=== PATIENT | female | born 1940 | race Caucasian/White ===

== ENCOUNTER 2024-01-05 15:28 | Inpatient (IN) | payer MEDICARE, OTHER, SELFPAY ==
[2024-01-05] VITALS (11 sets, daily range): BP systolic 127–163; BP diastolic 71–93; BMI 21.1; BMI 19.9
--- NOTE | 2024-01-05 11:13 | ED.GENMED ---
History of Present Illness
General
Chief Complaint: Chest Pain
Source: patient
Exam Limitations: none
Time Seen by Provider: 01/05/24 10:59
Travel History
Have you had any contact with someone who has COVID-19?: No
Do you have any symptoms of coronavirus? Fever > 100 degrees, chills, cough, shortness of breath, sore throat, loss of taste or smell, muscle aches, or headache?: No
History of Present Illness
History of Present Illness:
83-year-old female presents in referral from [facility] for evaluation of right pleuritic chest wall pain. She notes it began getting worse over the past 4 to 5 days. She notes she is slightly short of breath. She has a history of
mild dementia. 2 months ago, she flew to [place] and had a trip there of which she broke several hiking. She felt that she was completely healed from this and had no pain up until 4 to 5 days ago. She denies any leg swelling or calf pain. No
vomiting. No prior history of underlying lung disease or cardiac disease.
Past History
Past History
ED Past Medical History: Cancer and Other (Diverticulitis, small bowel obstruction, peptic ulcer disease, Alzheimer's, mitral valve prolapse)
ED Past Surgical History: Cardiac, , Gynecological and Tonsilectomy
Social History
Tobacco: Former smoker
Alcohol: None
Drug: None
Personal:
Employment: Retired
Family History
Family History: Other (Noncontributory)
Phy Exam
Physical Exam
Physical Exam:
General: Well-appearing female slight increased work of breathing
HEENT: Normocephalic atraumatic
Heart: Regular rate and rhythm
Lungs: Clear increased respiratory effort
Abdomen: Soft nontender nondistended no guarding or rebound
Extremities: No cyanosis or edema
Scores
Heart Score for Chest Pain Patients
STEMI patient?: No
History: Slightly or Non-Suspicious
ECG: Normal
Age: >/= 65 years
Risk Factors: No Risk Factors
Troponin: </= Normal Limit
Heart Score for Chest Pain Patients: 2
Heart Score Risk: 2.5% MACE over next 6 weeks
Course
Orders/Labs/Results
Orders:
Orders
01/05/24 09:46
ECG [Electrocardiogram (*1)] Urgent
Reason for Study: Chest Pain
EKG- Treatment ONCE
01/05/24 11:11
Electrocardiogram (*1) Urgent
Reason for Study: Chest Pain
EKG- Treatment ONCE
01/05/24 11:53
Complete Blood Count/With Diff Urgent
Comprehensive Metabolic Panel Urgent
NT-proBNP Urgent
Troponin I Urgent
01/05/24 12:55
CT Chest Pe Study Urgent
Comment:
Reason For Exam: right chest wall pain
01/05/24 14:33
PTT Urgent
Comment: Obtain baseline before beginning heparin infusion if not already collected
Heparin 4,200 units IV NOW STA
Pharmacy Request to Place See Dose Instructions PO NOW STA
Discontinue all Active Warfarin orders?: Yes
Nursing to Place Non Medication Order As Directed
Physician Order: PTT 6 hours after initial start of Heparin infusion
01/05/24 14:45
Heparin [id number] Units/250 ml 25,000 units in 250 ml IV PER PROTOCOL
Weight to be used for heparin protocol in kilograms (kg):: 52.2
Protocol:: DVT/PE
PTT Goal Range to be used:: PTT 73 to 111 seconds
Order type:: Initial
INITIAL Infusion Dose (UNITS/KG/hr) & then follow protocol:: 18 units/kg/hr
Infusion Dose in UNITS/hr & then follow protocol (UNITS/hr):: 900
INFUSION RATE in mL/hr & then follow protocol (mL/hr):: 9
For DVT/PE algorithm, re-bolus for low PTT?: Yes
PTT less than or equal to 64 seconds:: Re-bolus 80 units/kg (max 10,000units). Increase by 200 units/hr
(+ 2mL/hr)
PTT 64.1 to 72.9 seconds:: Re-bolus 40 units/kg (max 5,000 units). Increase by 100 units/hr
(+ 1mL/hr)
PTT 73 to 111 seconds:: Target Range. No change in rate.
PTT 111.1 to 130.9 seconds:: Decrease rate by 100 units/hr (- 1 mL/hr)
PTT 131 to 199.9 seconds:: HOLD for 1 hr. Then decrease by 200 units/hr (- 2mL/hr)
PTT greater than or equal to 200 seconds:: HOLD for 2 hrs & Notify Provider. Then decrease by 200 units/hr
(- 2mL/hr)
Lab follow-up:: Each change, PTT q6h until 2 consecutive are therapeutic. Then
PTT daily.
01/05/24 15:[address] See Dose Instructions IV DIRECTED
Abnormal Lab Results
01/05/24
11:53
RBC 3.72 L 10^6/uL
(4.20-5.40)
Hgb 11.6 L g/dL
(12.0-16.0)
Hct 33.4 L %
(37.0-47.0)
MCH 31.2 H pg
(27.0-31.0)
Abs Immat Gran (auto) 0.1 H 10^3/uL
(0-0.05)
Absolute Neuts (auto) 8.9 H 10^3/uL
(1.4-6.5)
Absolute Lymphs (auto) 0.7 L 10^3/uL
(1.2-3.4)
Absolute Monos (auto) 0.8 H 10^3/uL
(0.1-0.6)
Immature Gran % 0.6 H %
(0-0.5)
Neutrophils % 85.4 H %
(42.2-75.2)
Lymphocytes % 6.3 L %
(20.5-51.1)
BUN 28 H mg/dl
(7-17)
Glucose 102 H mg/dl
(70-99)
01/05/24 11:53
01/05/24 11:53
Vital Signs
Initial and Last Documented VS:
Initial Vital Signs
Temp Pulse Resp BP Pulse Ox
99 F 81 18 134/79 96
01/05/24 09:45 01/05/24 09:45 01/05/24 09:45 01/05/24 09:45 01/05/24 09:45
Last Documented Vital Signs
Temp Pulse Resp BP Pulse Ox
99 F 71 26 143/77 94
01/05/24 09:45 01/05/24 14:30 01/05/24 14:30 01/05/24 14:00 01/05/24 14:15
MDM/Problems Addressed
Differential Diagnosis Includes:
Patient with pleuritic right-sided chest wall pain differential could include flare of rib fracture pain versus PE versus pneumonia.
Will check labs EKG and troponin. If kidney functions allow, will order PE study of chest
*Critical Care Note
Total Time (30-74mins, 75-104mins- exclusive of procedures): Not Applicable
Update Note
Update Note:
CT demonstrates bilateral pulmonary embolism without evidence of heart strain. Patient is reexamined and is still somewhat dyspneic and tachypneic but not hypoxic. Given her age, and bilateral involvement, will keep in hospital with heparin.
ED Attending Note
-
Portions of this chart may have been created with voice recognition software.� Occasional wrong word or��sound alike� substitutions may have occurred due to the inherent limitations of voice recognition software.
Discharge Plan
Departure
Patient Disposition: Admit
Date of Disposition: 01/05/24
Time of Disposition: 14:37
Admit to: Telemetry
Presentation/result/management discussed w/ accepting MD/DO: Hospitalist
Discharge Problem:
pulmonary emoblism
Prescriptions:
No Action
alendronate 70 mg tablet
70 mg PO TH
Rx Instructions:
1 tablet 30 minutes before the first food, beverage, or medicine of the day with plain water
citalopram 40 mg tablet
40 mg PO DAILY
donepezil 10 mg tablet
10 mg PO HS
gabapentin 100 mg capsule
100 mg PO TID
vitamin D3-vitamin K2 1,250-200 mcg Capsule
1 cap PO DAILY Qty: 0
omeprazole 20 mg capsule,delayed release(DR/EC)
20 mg PO DAILY
rosuvastatin 5 mg tablet
5 mg PO DAILY
acetaminophen 325 mg Tablet
650 mg PO Q4HWA Qty: 0 0RF
tramadol 50 mg Tablet
50 mg PO Q6HPRN PRN (Reason: moderate pain) Qty: 7 0RF
lidocaine 4 % Adhesive Patch,Medicated
1 patch topical DAILY Qty: 5 0RF
Referrals:
UNKNOWN - PT DOES,NOT KNOW [Family Provider] -
Interventions
Interventions:
*General Assessment Last Done: 01/05/24 11:57
*Neglect/Abuse Screening Last Done: 01/05/24 11:57
*ED COVID-19 Vaccine History Last Done: 01/05/24 09:52
ED- Cardiac Assessment Last Done: 01/05/24 12:00
[2024-01-05 12:09] LABS: % Basophils 0.4 % (0-2); % Eosinophils 0.1 % (0-6); % Immature Granulocytes 0.6 % (0-0.5); % Lymphocytes 6.3 % (20.5-51.1); % Monocytes 7.2 % (1.7-9.3); % Neutrophils 85.4 % (42.2-75.2); Absolute Immature Granulocytes 0.1 10^3/uL (0-0.05); Absolute Lymphocytes 0.7 10^3/uL (1.2-3.4); Absolute Monocytes 0.8 10^3/uL (0.1-0.6); Absolute Neutrophils 8.9 10^3/uL (1.4-6.5); Hematocrit 33.4 % (37.0-47.0); Hemoglobin 11.6 g/dL (12.0-16.0); Mean Corp Hgb Conc. 34.7 g/dL (33.0-37.0); Mean Corpuscular Hgb 31.2 pg (27.0-31.0); Mean Corpuscular Volume 89.8 fL (81.0-99.0); Nucleated Red Blood Cells % 0 %; Platelet Count 259 10^3/uL (130-400); Red Blood Cell Count 3.72 10^6/uL (4.20-5.40); Red Cell Dist. Width 12.1 % (11.5-14.5); White Blood Cell Count 10.4 10^3/uL (4.8-10.8)
[2024-01-05 12:22] LABS: ALT (SGPT) 14 U/L (0-35); AST (SGOT) 20 U/L (14-36); Albumin 4.2 g/dl (3.5-5.0); Alkaline Phosphatase 89 U/L (38-126); Blood Urea Nitrogen 28 mg/dl (7-17); Carbon Dioxide 24 mmol/L (22-30); Chloride 104 mmol/L (98-107); Estimated Creatinine Clearance 44 ml/min; Glucose 102 mg/dl (70-99); Potassium 3.9 mmol/L (3.5-5.1); Sodium 137 mmol/L (135-145); Total Bilirubin 0.7 mg/dl (0.2-1.3); Total Protein 6.7 g/dl (6.3-8.2); eGFR > 60.00
[2024-01-05 12:33] LABS: NT-proBNP 665 pg/ml; Troponin I < 0.012 ng/ml
--- NOTE | 2024-01-05 14:40 | HPS.HSE ---
Addendum entered and electronically signed by Garrison Wick MD 01/05/24 16:44:
Patient seen and examined
Discussed with PANCHITO.
Agree with assessment and plan
Impression:
83 years old female with Alzheimer's dementia, lives independently, recent mechanical fall and nondisplaced right ninth rib fracture now presents with pleuritic chest pain
Patient is hemodynamically stable with stable respiratory status with no requirements for supplemental oxygen.
While worked up in the emergency room was found to have bilateral pulmonary embolism on CTA
Bilateral PE.
Pleuritic chest pain
Conditions prior to admission:
Hospitalization with displaced right ninth rib fracture after mechanical fall on 07/16.
Chronic kidney disease stage IIb.
Alzheimer's dementia.
Anxiety.
GERD.
History of PUD
Dyslipidemia
Plan:
Acute pulmonary embolism
Presents with pleuritic chest pain
Stable respiratory status with no evidence of distress, increased work of breathing abdomen splinting. Does not require supplemental oxygen
CT chest with bilateral PE with no evidence of saddle emboli or right ventricular strain.
Check lower extremity Doppler.
Echocardiogram for
Initiated on systemic anticoagulation with IV heparin.
Will monitor closely overnight with plan to transition to oral anticoagulation within next 24 hours
Follow hemoglobin
Original Note:
Family Physician
-
Family Physician: NOT KNOW UNKNOWN - PT DOES
Chief Complaint
-
sob
right pleuritic chest pain
History of Present Illness
83-year-old female with past medical history for dementia, Alzheimer's, diverticulitis, small bowel obstruction, peptic ulcer disease, mitral valve prolapse presented to us with right-sided pleuritic chest pain associated short of breath for past
few days . Patient stated short of breath worse with activity . Few months ago, she had rib fractures from fall.� She denies any leg swelling or calf pain. Stated some dizziness. Denied headache or dizziness syncopal episode. Patient denied
abdominal pain, nausea, vomiting, diarrhea. Patient denied dysuria hematuria. Patient is from [place]. she walks and does exercise every day, which she increased since the new year.
CT with PE. initiated on heparin drip. admitting for further managment.
Medical History
Past Medical History
Past Medical History: Reports Other
Additional Past Medical History:
diverticulitis
SBO
PUD
allzhmiers
mitral valve prolapse
Past Surgical History: Reports Other
Additional Past Surgical History:
c section
tonsillectomy
Social History
Unable to obtain full social history at this time due to: Dementia
Tobacco: Former Smoker
Alcohol: None
Drug: None
Living: Alone
Employment: Employed
Family History
Family History: Not pertinent
Allergies / Home Medications
Allergies reflects when Allergies were last updated in [employer].
Home Medications with original date entered in [employer]
Allergy/Medication List:
Allergies
Allergy/AdvReac Type Severity Reaction Status Date / Time
ciprofloxacin [From Cipro] Allergy Unknown Verified 01/05/24 09:54
ciprofloxacin HCl Allergy Unknown Verified 01/05/24 09:54
[From Cipro]
nitrofurantoin Allergy pt unable Verified 01/05/24 09:54
to confirm
- listed
on
transfer
sheet
Home Medications
alendronate 70 mg tablet 70 mg PO TH Osteoporosis 07/06/22
citalopram 40 mg tablet 40 mg PO DAILY Mental Health/Anxiety 07/06/22
donepezil 10 mg tablet 10 mg PO HS Neurological Condition 07/06/22
gabapentin 100 mg capsule 100 mg PO TID Pain 07/06/22
vitamin D3 1,250 mcg (50,000 unit)-vitamin K2 200 mcg capsule 1 cap PO DAILY Supplement ##0 07/06/22
omeprazole 20 mg capsule,delayed release 20 mg PO DAILY Gastrointestinal Issue 07/20/23
rosuvastatin 5 mg tablet 5 mg PO DAILY High Cholesterol 07/20/23
acetaminophen 325 mg tablet 650 mg PO Q4HWA #0 tabs 07/22/23
lidocaine 4 % topical patch 1 patch topical DAILY #5 ea 07/22/23
tramadol 50 mg tablet 50 mg PO Q6HPRN PRN moderate pain #7 tabs 07/22/23
Review of Systems
-
Constitutional: Reports No Symptoms
EENT: Reports No Symptoms
Respiratory: Reports Trouble Breathing
Cardiac: Reports Chest Pain
Abdomen/GI: Reports No Symptoms
: Reports No Symptoms
Musculoskeletal: Reports No Symptoms
Skin: Reports No Symptoms
Neurological: Reports No Symptoms
Endocrine: Reports No Symptoms
Hematologic/Lymphatic: Reports No Symptoms
Psych: Reports No Symptoms
Physical Exam
Vital Signs
Vital Signs
Temp Pulse Resp BP Pulse Ox
99 F 71 26 143/77 94
01/05/24 09:45 01/05/24 14:30 01/05/24 14:30 01/05/24 14:00 01/05/24 14:15
Physical Exam
General: Well Developed, Well Nourished and No Apparent Distress
HEENT: NormoCephalic, Moist mucous membranes and Atraumatic
Respiratory: Clear
Cardiac: S1/S2 and Regular Rhythm; No Murmur or Rub
GI: Soft, Non Tender, Non Distended and Normal Bowel Sounds; No Organomegaly
Rectal: Deferred by Provider
Musculoskeletal: No Clubbing, No Cyanosis and No Edema
Skin: No Rash
Neuro: AO x 3 and Nonfocal/grossly intact
Psych: Calm
Laboratory Results
-
01/05/24 11:53
01/05/24 11:53
Laboratory Results
Total Bilirubin 0.7 mg/dl (0.2-1.3) 01/05/24 11:53
AST 20 U/L (14-36) 01/05/24 11:53
ALT 14 U/L (0-35) 01/05/24 11:53
Alkaline Phosphatase 89 U/L (38-126) 01/05/24 11:53
Troponin I < 0.012 ng/ml 01/05/24 11:53
Data Reviewed
-
CT Scan: Report Reviewed by me
Lab Data: Labs Reviewed by me
Impression/Plan
-
#sob, right pleuritic chest pain likely from pulmonary embolism
-chest CT with Findings consistent with bilateral lower lobe and right upper lobe pulmonary embolism. No evidence to suggest right ventricular heart strain.Scattered groundglass and interstitial thickening. Possibly related to atelectasis. Cannot
exclude mild infectious or inflammatory process.
-EKG with NSR
-IV heparin drip
-oxygenating very well on RA
-obtain Doppler
-obtain ECHO
#recent right rib pin from rib fracture s/p fall
-tylenol, gabapentin
#CKD stage 2B--cr 0.8
#Mild Alzheimer's dementia
#Anxiety-citalopram continued
#hxt of GERD/PUD-omeprazole continued
#HLD-statin continued
#DVT prophylaxis-heparin
code status --DNR
[2024-01-05 15:13] LABS: APTT 38.9 Sec (23.4-35.0)
[2024-01-05] MEDS: HEPARIN 4200 UNITS IV (15:37)
[2024-01-05] MEDS: HEPARIN 25000 UNITS/250 ML IV (15:40)
[2024-01-05] MEDS: DILAUDID 0.5 MG IV (18:45)
[2024-01-05] MEDS: NEURONTIN 100 MG PO (21:28)
[2024-01-05 22:11] LABS: APTT 129.3 Sec (23.4-35.0)
--- NOTE | 2024-01-05 22:18 | PTCARENOTE ---
Received report from day nurse Tenisha , Patient remains on Heparin Drip at 9 Units an Hour , With Blood draw due at 2144. Patient is AAOx3, pleasant and cooperative.
[2024-01-06] MEDS: NEURONTIN PO (00:05)
[2024-01-06 03:24] VITALS: BP 139/82
[2024-01-06 04:29] LABS: APTT 78.5 Sec (23.4-35.0)
[2024-01-06 06:00] VITALS: BMI 19.8
[2024-01-06 07:30] VITALS: BP 154/88
[2024-01-06] MEDS: DILAUDID 0.5 MG IV (07:32)
[2024-01-06] MEDS: CRESTOR 5 MG PO (08:49)
[2024-01-06] MEDS: PROTONIX 40 MG PO (08:49)
[2024-01-06] MEDS: NEURONTIN 100 MG PO (08:49)
[2024-01-06] MEDS: CELEXA 40 MG PO (08:49)
[2024-01-06 11:00] VITALS: BP 121/74
[2024-01-06 11:16] LABS: APTT 63.5 Sec (23.4-35.0)
[2024-01-06] MEDS: ELIQUIS 10 MG PO (11:25)
[2024-01-06 11:42] VITALS: BP 117/70; PULSE 88; O2SAT 94
--- NOTE | 2024-01-06 12:18 | W.DS.TRANS ---
DC Summary - Healthcare Corporate Account Director
-
Discharge Instructions:
Discharge Diagnosis/Procedures Pulmonary embolism
Diet Regular
Instructions:
Stand-Alone Forms:
Changes to Home Medications: Yes
Discharge Medications:
DC Medications w/original date entered in [employer]
alendronate 70 mg tablet 70 mg PO TH@0800 Osteoporosis 07/06/22
citalopram 40 mg tablet 40 mg PO DAILY Mental Health/Anxiety 07/06/22
gabapentin 100 mg capsule 100 mg PO TID Pain 07/06/22
omeprazole 20 mg capsule,delayed release 20 mg PO DAILY Gastrointestinal Issue 07/20/23
rosuvastatin 5 mg tablet 5 mg PO DAILY High Cholesterol 07/20/23
[employer] Supplement 1 dose PO DAILY Supplement 01/05/24
acetaminophen 500 mg tablet (Tylenol Extra Strength) 1,000 mg PO Q6H PRN mild pain 01/05/24
vitamin D3 125 mcg (5,000 unit)-vitamin K2 100 mcg capsule 1 cap PO DAILY Supplement 01/05/24
apixaban 5 mg tablet (Eliquis) 10 mg PO BID #60 tabs 01/06/24
Home Medication Changes
Eliquis started
Pending Results: No
--- NOTE | 2024-01-06 14:44 | CM ---
Received notification from patient's RN that patient's family wants for patient to go to [facility]. Patient's sister stated that she received a call that patient can go to the [facility] for a few days prior to her returning to her apartment.
Updated RN.
Placed a call to DON at [facility] but had to leave a voice mail message. Request was made to her to return call so that RN knows whether she needs to call for report or what the protocol will be.
Plan: Case management will continue to follow and assist with discharge planning. Transfer to [facility].
[2024-01-06 15:00] VITALS: BP 122/70
--- NOTE | 2024-01-06 16:19 | CM ---
Spoke with JORI Andrade at [facility] who confirmed acceptance for patient and stated that she already received report.
== END 2024-01-06 15:41 | DRG 176 ==
LOC: 4 WEST ACU 15:28
PROVIDERS: Physician Assistant; ADMITTING PHYSICIAN Internal Medicine; EMERGENCY PHYSICIAN Emergency Medicine
DX: I26.99 Other pulmonary embolism without acute cor pulmonale (principal); F02.A4 Dementia in other diseases classified elsewhere, mild, with anxiety; G30.9 Alzheimer's disease, unspecified; I34.1 Nonrheumatic mitral (valve) prolapse; K21.9 Gastro-esophageal reflux disease without esophagitis; E78.5 Hyperlipidemia, unspecified; N18.2 Chronic kidney disease, stage 2 (mild); Z87.891 Personal history of nicotine dependence; Z87.11 Personal history of peptic ulcer disease; Z88.1 Allergy status to other antibiotic agents; Z88.3 Allergy status to other anti-infective agents; Z66 Do not resuscitate
CPT/HCPCS: 71275; 80053; 83880; 84484; 85025; 85730; 93005; 93306; 93970; 97161; 99285; Q9967

== ENCOUNTER → 2024-01-11 12:22 | Outpatient (REF) | payer MEDICARE, OTHER, SELFPAY ==
[2024-01-11 13:53] LABS: % Basophils 0.8 % (0-2); % Eosinophils 7.3 % (0-6); % Immature Granulocytes 0.3 % (0-0.5); % Lymphocytes 17.2 % (20.5-51.1); % Monocytes 8.5 % (1.7-9.3); % Neutrophils 65.9 % (42.2-75.2); Absolute Basophils 0.1 10^3/uL (0-0.2); Absolute Eosinophils 0.5 10^3/uL (0-0.7); Absolute Lymphocytes 1.1 10^3/uL (1.2-3.4); Absolute Monocytes 0.6 10^3/uL (0.1-0.6); Absolute Neutrophils 4.2 10^3/uL (1.4-6.5); Hemoglobin 10.2 g/dL (12.0-16.0); Mean Corpuscular Volume 91.2 fL (81.0-99.0); Mean Platelet Volume 9.4 fL (7.4-10.4); Nucleated Red Blood Cells % 0 %; Platelet Count 439 10^3/uL (130-400); Red Blood Cell Count 3.29 10^6/uL (4.20-5.40); White Blood Cell Count 6.4 10^3/uL (4.8-10.8)
[2024-01-11 13:57] LABS: Blood Urea Nitrogen 23 mg/dl (7-17); Calcium 8.4 mg/dl (8.4-10.2); Carbon Dioxide 26 mmol/L (22-30); Chloride 104 mmol/L (98-107); Glucose 81 mg/dl (70-99); Potassium 4.5 mmol/L (3.5-5.1); Sodium 135 mmol/L (135-145); eGFR > 60.00
== END ==
LOC: OLABPG 12:22
PROVIDERS: ATTENDING PHYSICIAN Family Medicine
DX: R07.89 Other chest pain (principal)
CPT/HCPCS: 36415; 80048; 85025

== ENCOUNTER → 2024-06-11 15:05 | Outpatient (REF) | payer MEDICARE, OTHER, SELFPAY | LOC: RAD 15:05 | PROVIDERS: ATTENDING PHYSICIAN Internal Medicine Critical Care Medicine; FAMILY PHYSICIAN Family Medicine | DX: R91.8 Other nonspecific abnormal finding of lung field (principal) | CPT/HCPCS: 71250 ==

== ENCOUNTER → 2024-06-15 11:41 | Outpatient (REF) | payer MEDICARE, OTHER, SELFPAY ==
[2024-06-15 12:35] LABS: % Basophils 1.3 % (0-2); % Eosinophils 3.5 % (0-6); % Immature Granulocytes 0.4 % (0-0.5); % Lymphocytes 26.3 % (20.5-51.1); % Monocytes 9.1 % (1.7-9.3); % Neutrophils 59.4 % (42.2-75.2); Absolute Basophils 0.1 10^3/uL (0-0.2); Absolute Eosinophils 0.2 10^3/uL (0-0.7); Absolute Lymphocytes 1.2 10^3/uL (1.2-3.4); Absolute Monocytes 0.4 10^3/uL (0.1-0.6); Absolute Neutrophils 2.7 10^3/uL (1.4-6.5); Hematocrit 35.7 % (37.0-47.0); Hemoglobin 12.3 g/dL (12.0-16.0); Mean Corp Hgb Conc. 34.5 g/dL (33.0-37.0); Mean Corpuscular Hgb 31.3 pg (27.0-31.0); Mean Corpuscular Volume 90.8 fL (81.0-99.0); Mean Platelet Volume 9.7 fL (7.4-10.4); Nucleated Red Blood Cells % 0 %; Platelet Count 267 10^3/uL (130-400); Red Blood Cell Count 3.93 10^6/uL (4.20-5.40); Red Cell Dist. Width 12.1 % (11.5-14.5); White Blood Cell Count 4.5 10^3/uL (4.8-10.8)
[2024-06-15 15:21] LABS: ALT (SGPT) 21 U/L (0-35); AST (SGOT) 20 U/L (14-36); Alkaline Phosphatase 58 U/L (38-126); Blood Urea Nitrogen 31 mg/dl (7-17); Calcium 9.3 mg/dl (8.4-10.2); Carbon Dioxide 26 mmol/L (22-30); Chloride 108 mmol/L (98-107); Glucose 85 mg/dl (70-99); HDL Cholesterol 54 mg/dl; Iron 100 ug/dl (37-170); LDL Cholesterol, Calculated 94 mg/dl; Potassium 5.1 mmol/L (3.5-5.1); Sodium 141 mmol/L (135-145); Total Bilirubin 0.4 mg/dl (0.2-1.3); Total Cholesterol 163 mg/dl (50-199); Triglyceride 79 mg/dl (10-149); Very Low Density Lipoprotein 15 mg/dl (0-30)
[2024-06-15 15:30] LABS: Percent Saturation 33 % (20-50); Total Iron Binding Capacity 295 ug/dl (265-497)
[2024-06-15 16:32] LABS: Ferritin 32.3 ng/ml (11.1-264.0)
== END ==
LOC: OLABPV 11:41
PROVIDERS: ATTENDING PHYSICIAN Family Medicine
DX: D64.9 Anemia, unspecified (principal); I10 Essential (primary) hypertension; E55.9 Vitamin D deficiency, unspecified; G60.9 Hereditary and idiopathic neuropathy, unspecified
CPT/HCPCS: 36415; 80053; 80061; 82728; 83540; 83550; 85025

== ENCOUNTER → 2024-11-21 11:46 | Outpatient (REF) | payer MEDICARE, OTHER, SELFPAY ==
[2024-11-21 12:28] LABS: % Basophils 1.3 % (0-2); % Eosinophils 2.9 % (0-6); % Immature Granulocytes 0.2 % (0-0.5); % Lymphocytes 19.7 % (20.5-51.1); % Monocytes 9.5 % (1.7-9.3); % Neutrophils 66.4 % (42.2-75.2); Absolute Basophils 0.1 10^3/uL (0-0.2); Absolute Eosinophils 0.1 10^3/uL (0-0.7); Absolute Lymphocytes 0.9 10^3/uL (1.2-3.4); Absolute Monocytes 0.5 10^3/uL (0.1-0.6); Absolute Neutrophils 3.2 10^3/uL (1.4-6.5); Hematocrit 38.7 % (37.0-47.0); Hemoglobin 13.1 g/dL (12.0-16.0); Mean Corp Hgb Conc. 33.9 g/dL (33.0-37.0); Mean Corpuscular Volume 91.7 fL (81.0-99.0); Mean Platelet Volume 9.7 fL (7.4-10.4); Nucleated Red Blood Cells % 0 %; Platelet Count 269 10^3/uL (130-400); Red Blood Cell Count 4.22 10^6/uL (4.20-5.40); Red Cell Dist. Width 11.8 % (11.5-14.5); White Blood Cell Count 4.8 10^3/uL (4.8-10.8)
[2024-11-21 16:31] LABS: Ferritin 37.3 ng/ml (11.1-264.0)
[2024-11-21 17:58] LABS: ALT (SGPT) 17 U/L (0-35); AST (SGOT) 29 U/L (14-36); Albumin 3.9 g/dl (3.5-5.0); Alkaline Phosphatase 50 U/L (38-126); Blood Urea Nitrogen 25 mg/dl (7-17); Calcium 8.3 mg/dl (8.4-10.2); Carbon Dioxide 27 mmol/L (22-30); Chloride 107 mmol/L (98-107); Glucose 89 mg/dl (70-99); HDL Cholesterol 50 mg/dl; LDL Cholesterol, Calculated 77 mg/dl; Sodium 139 mmol/L (135-145); Total Bilirubin 0.4 mg/dl (0.2-1.3); Total Cholesterol 139 mg/dl (50-199); Total Protein 5.9 g/dl (6.3-8.2); Triglyceride 62 mg/dl (10-149); Very Low Density Lipoprotein 12 mg/dl (0-30); eGFR > 60.00
== END ==
LOC: OLABPV 11:46
PROVIDERS: ATTENDING PHYSICIAN Family Medicine
DX: D64.9 Anemia, unspecified (principal); E78.2 Mixed hyperlipidemia; N18.31 Chronic kidney disease, stage 3a
CPT/HCPCS: 36415; 80053; 80061; 82728; 85025

== ENCOUNTER → 2025-04-05 10:21 | Outpatient (REF) | payer MEDICARE, OTHER, SELFPAY ==
[2025-04-05 12:01] LABS: % Basophils 1.3 % (0-2); % Eosinophils 3.8 % (0-6); % Immature Granulocytes 0.2 % (0-0.5); % Lymphocytes 20.9 % (20.5-51.1); % Monocytes 10.4 % (1.7-9.3); % Neutrophils 63.4 % (42.2-75.2); Absolute Basophils 0.1 10^3/uL (0-0.2); Absolute Eosinophils 0.2 10^3/uL (0-0.7); Absolute Monocytes 0.5 10^3/uL (0.1-0.6); Hematocrit 36.5 % (37.0-47.0); Hemoglobin 12.3 g/dL (12.0-16.0); Mean Corp Hgb Conc. 33.7 g/dL (33.0-37.0); Mean Corpuscular Hgb 31.1 pg (27.0-31.0); Mean Corpuscular Volume 92.4 fL (81.0-99.0); Nucleated Red Blood Cells % 0 %; Platelet Count 251 10^3/uL (130-400); Red Blood Cell Count 3.95 10^6/uL (4.20-5.40); Red Cell Dist. Width 11.6 % (11.5-14.5); White Blood Cell Count 4.7 10^3/uL (4.8-10.8)
[2025-04-05 16:15] LABS: TSH Reflex To Free T4 1.72 uIU/ml (0.47-4.68)
[2025-04-05 16:19] LABS: Ferritin 39.6 ng/ml (11.1-264.0)
[2025-04-05 20:42] LABS: ALT (SGPT) 14 U/L (0-35); AST (SGOT) 19 U/L (14-36); Alkaline Phosphatase 60 U/L (38-126); Blood Urea Nitrogen 25 mg/dl (7-17); Calcium 9.3 mg/dl (8.4-10.2); Carbon Dioxide 20 mmol/L (22-30); Chloride 115 mmol/L (98-107); Glucose 94 mg/dl (70-99); HDL Cholesterol 53 mg/dl; LDL Cholesterol, Calculated 100 mg/dl; Sodium 143 mmol/L (135-145); Total Bilirubin 0.4 mg/dl (0.2-1.3); Total Cholesterol 159 mg/dl (50-199); Triglyceride 32 mg/dl (10-149); Very Low Density Lipoprotein 6 mg/dl (0-30); eGFR 50.17
== END ==
LOC: OLABPV 10:21
PROVIDERS: ATTENDING PHYSICIAN Family Medicine
DX: D64.9 Anemia, unspecified (principal); E78.2 Mixed hyperlipidemia; N18.31 Chronic kidney disease, stage 3a; Z13.29 Encounter for screening for other suspected endocrine disorder
CPT/HCPCS: 36415; 80053; 80061; 82728; 84443; 85025